=== PATIENT | male | born 1965 | race Caucasian/White ===

== ENCOUNTER → 2020-01-21 | Outpatient (CLI) | payer OTHER ==
[~2020-01-21] MED LIST: AMLO1TAB25 PO; ASPI81TA45 PO; TYLE325T5 PO; VALSARTAN PO; VITA100018 PO
--- NOTE | 2020-02-20 10:51 | REP ---
ZENOBIAIE SWALLOW The procedure was performed under the direct supervision of Dr. Warner. The procedure was performed with Yakelin Anton from speech pathology present. 5 mL aliquots of thin, pudding, mixed fruit, soft, and solid consistency barium was administered. There was no evidence of penetration or aspiration. A detailed report of this examination will be provided by speech pathology. 0.6 minutes of fluoroscopy time was utilized for this procedure. FANY
== END ==
LOC: M ST 12:27
PROVIDERS: ATTEND Physician Assistant Medical
DX: R13.10 Dysphagia, unspecified (principal)

== ENCOUNTER 2020-02-26 09:45 | Outpatient (RCR) | payer OTHER | END 2020-02-27 | disposition home or self-care (01) | LOC: M ST 09:45 | PROVIDERS: ATTEND Physician Assistant Medical | DX: R13.10 Dysphagia, unspecified (principal) ==

== ENCOUNTER 2021-05-20 18:33 | Emergency (ER) | payer OTHER ==
[~2021-05-20] VITALS: Ht 180.3 cm; Wt 131.8 kg
[2021-05-20] MEDS ORDERED: ELIQ5TAB PO (18:50)
[2021-05-20] MEDS ORDERED: VALS1TAB68 PO (18:50)
--- NOTE | 2021-05-20 20:13 | REPVR ---
PROCEDURE INFORMATION: Exam: CT Abdomen And Pelvis Without Contrast Exam date and time: 05/20/2021 6:56 PM Age: 55 years old Clinical indication: Other: Right flank pain TECHNIQUE: Imaging protocol: Computed tomography of the abdomen and pelvis without contrast. Radiation optimization: All CT scans at this facility use at least one of these dose optimization techniques: automated exposure control; mA and/or kV adjustment per patient size (includes targeted exams where dose is matched to clinical indication); or iterative reconstruction. COMPARISON: No relevant prior studies available. FINDINGS: Lungs: No suspicious mass or airspace process in the visualized lung bases. Liver: Noncontrast liver shows no obvious lesion. Gallbladder and bile ducts: Gallbladder is present and shows no evidence of gallstone. Pancreas: Noncontrast pancreas shows no obvious mass or adjacent fluid. Spleen: Noncontrast spleen shows no obvious focal deformity. Adrenal glands: Adrenal glands are normal in appearance. Kidneys and ureters: Left kidney demonstrates no stone or obstructive uropathy. Right kidney demonstrates perinephric stranding, diffuse edema and mild hydronephrosis, secondary to a proximal right ureter stone measuring 5 x 3 mm at the right UPJ level. Stomach and bowel: Limited evaluation without enteric or IV contrast. No evidence of small bowel obstruction. No evidence of acute diverticulitis. Appendix: Normal-appearing retrocecal appendix is identified, without inflammation. Intraperitoneal space: No pneumoperitoneum. Vasculature: Atherosclerotic change present in the aorta, without aneurysm. Lymph nodes: No enlarged lymph nodes. Urinary bladder: Urinary bladder appears normal. Reproductive: Dystrophic prostate calcifications are noted. Bones/joints: Bony structures show no acute fracture or destructive process. Soft tissues: Fat containing umbilical hernia is present. No concerning focal abnormality of the extra-abdominal and pelvic soft tissues. IMPRESSION: Mild right hydronephrosis secondary to a 5 x 3 mm proximal right ureter stone at the UPJ level Electronically signed by: Chuckie Prajapati On 05/20/2021 20:12:49 PM
[2021-05-20 20:14] LABS: BASO % 0.3 % (0.0-1.0); EOS % 0.1 % (0.0-3.0); HEMATOCRIT 41.2 % (42.0-52.0); HEMOGLOBIN 13.8 g/dl (13.5-17.5); LYMPH % 7.2 % (24.0-44.0); MEAN CORPUSCULAR HEMOGLOBIN 30.4 pg (27.0-33.0); MEAN CORPUSCULAR HGB CONC 33.5 g/dl (32.0-36.5); MEAN CORPUSCULAR VOLUME 90.7 fl (80.0-96.0); MONO # 1.2 10^3/uL (0.0-0.8); MONO % 8.7 % (2.0-8.0); NEUTROPHILS # 11.4 10^3/uL (1.5-8.5); NEUTROPHILS % 82.9 % (36.0-66.0); PLATELET COUNT, AUTOMATED 188 10^3/uL (150-450); RED BLOOD COUNT 4.54 10^6/uL (4.30-6.10); WHITE BLOOD COUNT 13.7 10^3/uL (4.0-10.0)
[2021-05-20 20:40] LABS: CALCIUM LEVEL 8.6 MG/DL (8.5-10.1); CREATININE FOR GFR 1.48 MG/DL (0.70-1.30); GLOMERULAR FILTRATION RATE 52.2 (>56); POTASSIUM SERUM 3.4 MEQ/L (3.5-5.1)
[2021-05-20] MEDS: NS 1,000 ML IV ONE (23:55)
[2021-05-21 00:13] LABS: BILIRUBIN,DIRECT 0.2 MG/DL (0.0-0.2); BILIRUBIN,TOTAL 0.5 MG/DL (0.2-1.0); TOTAL PROTEIN 7.2 GM/DL (6.4-8.2)
--- NOTE | 2021-05-21 00:34 | REPVR ---
PROCEDURE INFORMATION: Exam: US Scrotum Exam date and time: 05/20/2021 12:17 AM Age: 55 years old Clinical indication: Scrotum pain; Additional info: R testicular pain TECHNIQUE: Imaging protocol: Real-time ultrasound of the scrotum and contents with color Doppler and image documentation. COMPARISON: CT ABD PELVIS W/O CONTRAST 05/20/2021 6:52 PM FINDINGS: Right testicle: Right testicle measures 3.4 x 2.8 x 2.3 cm in size. Right testicle appears homogeneous with no focal mass. Normal Doppler flow is present within the right testicle. Left testicle: Left testicle measures 2.7 x 2.5 x 4.1 cm in size. Normal resistive index 0.68. Left testicle appears homogeneous with no focal mass. Normal Doppler flow is present within the left testicle. Normal resistive index 0.61 Epididymides: Right epididymis appears normal and demonstrates normal Doppler flow. Left epididymis appears normal and demonstrates normal Doppler flow. Scrotum: Large bilateral hydrocele . No bowel-containing hernia sac within the scrotum. IMPRESSION: Large bilateral scrotal hydrocele without evidence of septations or hypervascularity. No evidence of testicular torsion, epididymitis or other concerning process Electronically signed by: Chuckie Prajapati On 05/21/2021 00:33:59 AM
[2021-05-21] MEDS: KETOROLAC 30 MG/ML 1ML VIAL IV ONE (00:45)
[2021-05-21] MEDS: POTASSIUM CHLORIDE 10MEQ SR TABLET PO ONE (02:55)
[2021-05-21] MEDS ORDERED: PERC5TAB12 PO (03:27)
[2021-05-21 03:46] VITALS: BP 138/77
--- NOTE | 2021-05-22 09:17 | ED PDOC ---
Post-Departure Follow-Up radiology report faxed to john Campos Sarah MD May 22, 2021 09:17
== END 2021-05-21 03:48 | disposition home or self-care (01) ==
LOC: M ED 18:33
DX: N20.1 Calculus of ureter (principal); R73.03 Prediabetes; M54.9 Dorsalgia, unspecified; F41.9 Anxiety disorder, unspecified; N43.3 Hydrocele, unspecified; Z79.82 Long term (current) use of aspirin; Z79.899 Other long term (current) drug therapy; Z88.8 Allergy status to other drugs, medicaments and biological substances
CPT/HCPCS: 74176; 76870; 80048; 80076; 81001; 83690; 85025; 93976; 96360; 96361; 96374; 99285; J1885

== ENCOUNTER → 2021-06-01 | Outpatient (CLI) | payer OTHER ==
[~2021-06-01] MED LIST changes: +ELIQ5TAB PO; +PERC5TAB12 PO; +VALS1TAB68 PO
--- NOTE | 2021-06-01 12:01 | REP ---
INDICATION: LOCALIZED SWELLING MASS AND LUMP OF RT ARM. COMPARISON: None. TECHNIQUE: Real-time sonographic evaluation of a palpable mass in the right upper arm with Doppler FINDINGS: There is a possible echogenic poorly marginated non circumscribed lesions seen in the region of a palpable mass which measures 3.8 x 1.5 x 1.6 cm. Doppler shows no evidence of internal blood flow. IMPRESSION: Possible mass as described above. Pre and post gadolinium enhanced MRI is recommended. <Electronically signed by Margarito Flores > 06/01/21 2048
== END ==
LOC: M RAD 10:58
PROVIDERS: ATTEND Nurse Practitioner Primary Care
DX: M79.89 Other specified soft tissue disorders (principal)

== ENCOUNTER → 2021-07-08 | Outpatient (CLI) | payer OTHER ==
[2021-07-08 11:22] LABS: BLOOD UREA NITROGEN 23 MG/DL (7-18); CARBON DIOXIDE LEVEL 24 MEQ/L (21-32); CHLORIDE LEVEL 109 MEQ/L (98-107); GLOMERULAR FILTRATION RATE > 60.0 (>56); GLUCOSE, FASTING 114 MG/DL (70-100); SODIUM LEVEL 140 MEQ/L (136-145)
== END ==
LOC: M LAB 09:20
PROVIDERS: ATTEND Nurse Practitioner Primary Care
DX: R22.30 Localized swelling, mass and lump, unspecified upper limb (principal)

== ENCOUNTER → 2021-07-27 | Outpatient (CLI) | payer OTHER ==
[~2021-07-27] MED LIST changes: +OMEGA-3 1000MG CAPSULE ONE; +PROHANCE 279.3MG/ML 15ML VIAL ONE; +PROHANCE 279.3MG/ML 5ML VIAL ONE
== END ==
LOC: M PLAIMG 09:53
PROVIDERS: ATTEND Nurse Practitioner Primary Care
DX: R22.30 Localized swelling, mass and lump, unspecified upper limb (principal)
CPT/HCPCS: 73220; A9576

== ENCOUNTER → 2022-01-15 | Outpatient (REF) ==
[~2022-01-15] MED LIST changes: -OMEGA-3 1000MG CAPSULE ONE; -PROHANCE 279.3MG/ML 15ML VIAL ONE; -PROHANCE 279.3MG/ML 5ML VIAL ONE
== END ==
LOC: M RAD 09:56
PROVIDERS: ATTEND Nurse Practitioner Family
DX: M25.511 Pain in right shoulder (principal)

== ENCOUNTER 2022-09-28 18:51 | Observation (INO) | payer OTHER ==
[~2022-09-28] VITALS: Ht 180.3 cm; Wt 133.4 kg
[2022-09-28 21:00] VITALS: BP 165/94
[2022-09-28] MEDS ORDERED: TAMSULOSIN 0.4 MG CAP PO SCH (21:00)
[2022-09-28] MEDS ORDERED: HYDROMORPHONE HCL 0.5 MG/ 0.5 ML SYRINGE IV PRN (22:35)
[2022-09-28] MEDS ORDERED: ONDANSETRON 4MG 2ML VIAL IV PRN (22:35)
[2022-09-28] MEDS: NS 1,000 ML IV SCH (23:20)
[2022-09-28] MEDS ORDERED: ASPI-161 PO (23:23)
[2022-09-28] MEDS ORDERED: ATEN25TA PO (23:23)
[2022-09-28] MEDS ORDERED: SERT50TA29 PO (23:23)
[2022-09-28] MEDS ORDERED: POTA-150 PO (23:23)
[2022-09-28] MEDS ORDERED: FLOM0.4C39 PO (23:23)
[2022-09-28] MEDS ORDERED: CHLO125TA PO (23:23)
[2022-09-28] MEDS ORDERED: XARE20TA PO (23:23)
[2022-09-28] MEDS ORDERED: DICL1GEL3 TOP (23:23)
[2022-09-28] MEDS ORDERED: ATOR40TA75 PO (23:23)
[2022-09-28] MEDS ORDERED: VALS1TAB68 PO (23:23)
[2022-09-28] MEDS ORDERED: FLON1SPR (23:23)
[2022-09-28] MEDS ORDERED: FAMO40TA3 PO (23:23)
[2022-09-28] MEDS ORDERED: FLUC150T9 PO (23:23)
[2022-09-28] MEDS ORDERED: XALA0.007 OU (23:23)
[2022-09-28] MEDS ORDERED: ARTIDRO4 OU (23:23)
[2022-09-28] MEDS ORDERED: AMLO1TAB24 PO (23:23)
[2022-09-28] MEDS ORDERED: HOME MED LIST COMPLETE! XX SCH (23:25)
[2022-09-29 00:14] VITALS: BP 120/56
[2022-09-29 04:56] VITALS: BP 141/63
[2022-09-29 07:26] LABS: BASO % 0.7 % (0.0-1.0); EOS # 0.1 10^3/uL (0.0-0.5); EOS % 2.2 % (0.0-3.0); HEMATOCRIT 37.8 % (42.0-52.0); HEMOGLOBIN 12.7 g/dl (13.5-17.5); LYMPH # 1.4 10^3/uL (1.5-5.0); LYMPH % 23.6 % (24.0-44.0); MEAN CORPUSCULAR HEMOGLOBIN 30.7 pg (27.0-33.0); MEAN CORPUSCULAR HGB CONC 33.6 g/dl (32.0-36.5); MEAN CORPUSCULAR VOLUME 91.3 fl (80.0-96.0); MONO # 0.5 10^3/uL (0.0-0.8); NEUTROPHILS # 3.8 10^3/uL (1.5-8.5); PLATELET COUNT, AUTOMATED 161 10^3/uL (150-450); RED BLOOD COUNT 4.14 10^6/uL (4.30-6.10); WHITE BLOOD COUNT 5.9 10^3/uL (4.0-10.0)
[2022-09-29 07:58] LABS: BLOOD UREA NITROGEN 17 MG/DL (9-23); CARBON DIOXIDE LEVEL 28 MMOL/L (20-31); CHLORIDE LEVEL 107 MMOL/L (98-107); CREATININE FOR GFR 1.01 MG/DL (0.70-1.30); GLOMERULAR FILTRATION RATE > 60.0 (>56); GLUCOSE, FASTING 130 MG/DL (60-100); MAGNESIUM LEVEL 1.9 MG/DL (1.8-2.4); POTASSIUM SERUM 3.3 MMOL/L (3.5-5.1); SODIUM LEVEL 141 MMOL/L (136-145)
[2022-09-29 08:00] VITALS: BP 130/80
[2022-09-29] MEDS ORDERED: POTASSIUM CHLORIDE 10MEQ SR TABLET PO ONE (08:10)
[2022-09-29] MEDS ORDERED: FAMOTIDINE 20 MG TAB PO PRN (08:40)
[2022-09-29] MEDS ORDERED: POLYVINYL ALCOHOL OPHTH SOLN 15ML (LIQUITEARS) OU PRN (08:40)
[2022-09-29] MEDS ORDERED: FLUTICASONE PROP 0.05% NASAL SPRAY 16 GM (FLONASE) PRN (08:40)
[2022-09-29] MEDS: NS 1,000 ML IV SCH (08:47)
[2022-09-29] MEDS ORDERED: VALSARTAN 80 MG TAB (DIOVAN) PO SCH (09:00)
[2022-09-29] MEDS ORDERED: CYANOCOBALAMIN 500 MCG TAB PO SCH (09:00)
[2022-09-29] MEDS ORDERED: SERTRALINE HCL 50 MG TAB PO SCH (09:00)
[2022-09-29] MEDS ORDERED: ATENOLOL 12.5MG PER 1/2 TABLET PO SCH (09:00)
[2022-09-29] MEDS ORDERED: amLODIPine 5 MG TAB PO SCH (09:00)
[2022-09-29 09:45] VITALS: BP 130/80
[2022-09-29 12:00] LABS: HEMATOCRIT 39.7 % (42.0-52.0); HEMOGLOBIN 13.1 g/dl (13.5-17.5)
[2022-09-29 12:12] VITALS: BP 122/74
[2022-09-29 15:24] VITALS: BP 120/69
[2022-09-29] MEDS ORDERED: XARE20TA PO (16:30)
[2022-09-29 16:45] LABS: HEMATOCRIT 38.6 % (42.0-52.0)
[2022-09-29] MEDS ORDERED: ATORVASTATIN 20 MG TAB PO SCH (21:00)
[2022-09-29] MEDS ORDERED: LATANOPROST 0.005% OPHTH SOLN 2.5 ML OU SCH (21:00)
== END 2022-09-29 17:45 | disposition home or self-care (01) ==
LOC: INTOOBSV 20:38 → M PCU 20:38
PROVIDERS: ADMIT Internal Medicine; ATTEND Internal Medicine
DX: R31.0 Gross hematuria (principal); N20.1 Calculus of ureter; I48.91 Unspecified atrial fibrillation; I10 Essential (primary) hypertension; E78.5 Hyperlipidemia, unspecified; K21.9 Gastro-esophageal reflux disease without esophagitis; Z88.8 Allergy status to other drugs, medicaments and biological substances; Z91.030 Bee allergy status; Z79.899 Other long term (current) drug therapy; Z79.82 Long term (current) use of aspirin; Z79.01 Long term (current) use of anticoagulants; Z87.891 Personal history of nicotine dependence
CPT/HCPCS: 36415; 76775; 80048; 83735; 85014; 85018; 85025; G0378

== ENCOUNTER 2022-09-29 19:52 | Observation (INO) | payer OTHER ==
[~2022-09-29] VITALS: Ht 180.3 cm; Wt 130.8 kg
[~2022-09-29 19:52] MED LIST changes: +AMLO1TAB24 PO; +ARTIDRO4 OU; +ASPI-161 PO; +ATEN25TA PO; +ATOR40TA75 PO; +CHLO125TA PO; +DICL1GEL3 TOP; +FAMO40TA3 PO; +FLOM0.4C39 PO; +FLON1SPR; +FLUC150T9 PO; +POTA-150 PO; +SERT50TA29 PO; +XALA0.007 OU; +XARE20TA PO
[2022-09-29 21:05] LABS: BASO % 0.6 % (0.0-1.0); EOS # 0.2 10^3/uL (0.0-0.5); EOS % 2.4 % (0.0-3.0); HEMATOCRIT 38.9 % (42.0-52.0); HEMOGLOBIN 13.2 g/dl (13.5-17.5); LYMPH # 1.8 10^3/uL (1.5-5.0); LYMPH % 26.3 % (24.0-44.0); MEAN CORPUSCULAR HEMOGLOBIN 31.3 pg (27.0-33.0); MEAN CORPUSCULAR HGB CONC 33.9 g/dl (32.0-36.5); MEAN CORPUSCULAR VOLUME 92.2 fl (80.0-96.0); MONO # 0.5 10^3/uL (0.0-0.8); MONO % 7.3 % (2.0-8.0); NEUTROPHILS # 4.3 10^3/uL (1.5-8.5); NEUTROPHILS % 63.1 % (36.0-66.0); PLATELET COUNT, AUTOMATED 173 10^3/uL (150-450); RED BLOOD COUNT 4.22 10^6/uL (4.30-6.10); WHITE BLOOD COUNT 6.7 10^3/uL (4.0-10.0)
[2022-09-29] MEDS ORDERED: TAMSULOSIN 0.4 MG CAP PO ONE (21:10)
[2022-09-29 21:22] LABS: INR 0.9; PROTHROMBIN TIME 12.3 SECONDS (12.5-14.5)
[2022-09-29 21:23] LABS: PARTIAL THROMBOPLASTIN TIME 26.5 SECONDS (24.8-34.2)
[2022-09-29 21:27] LABS: BLOOD UREA NITROGEN 18 MG/DL (9-23); CALCIUM LEVEL 8.4 MG/DL (8.5-10.1); CARBON DIOXIDE LEVEL 29 MMOL/L (20-31); CHLORIDE LEVEL 108 MMOL/L (98-107); CREATININE FOR GFR 1.08 MG/DL (0.70-1.30); GLOMERULAR FILTRATION RATE > 60.0 (>56); GLUCOSE, FASTING 140 MG/DL (60-100); POTASSIUM SERUM 3.3 MMOL/L (3.5-5.1); SODIUM LEVEL 143 MMOL/L (136-145)
[2022-09-29 21:39] LABS: RSV AMPLIFICATION NEGATIVE (NEGATIVE)
[2022-09-29] MEDS ORDERED: KETOROLAC 30 MG/ML 1ML VIAL IV ONE (22:00)
[2022-09-29] MEDS ORDERED: HOME MED LIST COMPLETE! XX SCH (22:25)
[2022-09-29] MEDS ORDERED: HYDROMORPHONE HCL 0.5 MG/ 0.5 ML SYRINGE IV PRN (23:00)
[2022-09-29] MEDS ORDERED: ATENOLOL 12.5MG PER 1/2 TABLET PO PRN (23:00)
[2022-09-29] MEDS ORDERED: FAMOTIDINE 20 MG TAB PO PRN (23:00)
[2022-09-30] VITALS (9 sets, daily range): BP systolic 132–159; BP diastolic 71–98
[2022-09-30] MEDS: NS 1,000 ML IV SCH ×3 (01:07→19:41)
[2022-09-30] MEDS: LATANOPROST 0.005% OPHTH SOLN 2.5 ML OU SCH ×2 (01:07→19:42)
[2022-09-30] MEDS: ACETAMINOPHEN TAB 650MG DOSE (2X325MG) PO PRN (01:08)
[2022-09-30 06:48] LABS: BLOOD UREA NITROGEN 22 MG/DL (9-23); CALCIUM LEVEL 8.5 MG/DL (8.5-10.1); CARBON DIOXIDE LEVEL 26 MMOL/L (20-31); CHLORIDE LEVEL 110 MMOL/L (98-107); CREATININE FOR GFR 1.09 MG/DL (0.70-1.30); GLOMERULAR FILTRATION RATE > 60.0 (>56); GLUCOSE, FASTING 123 MG/DL (60-100); POTASSIUM SERUM 3.4 MMOL/L (3.5-5.1); SODIUM LEVEL 141 MMOL/L (136-145)
[2022-09-30] MEDS ORDERED: ceFAZolin SOD 3 GM in IV 1 EA IV ONE (12:00)
[2022-09-30] MEDS ORDERED: ISOVUE-300 61% 100ML VIAL As Ordered ONE (12:03)
[2022-09-30] MEDS ORDERED: ceFAZolin SOD 2 GM in IV 1 EA IV ONE (12:05)
[2022-09-30] MEDS ORDERED: ceFAZolin SOD 1 GM in D5W MINI-BAG PLUS 50 ML IV ONE (12:05)
[2022-09-30] MEDS ORDERED: ceFAZolin 1GM VIAL As Ordered ONE (12:10)
[2022-09-30] MEDS ORDERED: GLYCOPYRROLATE INJ 0.2 MG/ML 2 ML VIAL As Ordered ONE (12:41)
[2022-09-30] MEDS ORDERED: fentaNYL 100 MCG/2 ML INJECTION As Ordered ONE (12:48)
[2022-09-30] MEDS ORDERED: MIDAZOLAM INJ 2MG/2ML VIAL As Ordered ONE (12:48)
[2022-09-30] MEDS ORDERED: propofoL 200 MG/20 ML VIAL As Ordered ONE (12:48)
[2022-09-30] MEDS ORDERED: ONDANSETRON 4MG 2ML VIAL As Ordered ONE (12:48)
[2022-09-30] MEDS ORDERED: LIDOCAINE 2% 100MG/5ML SDV (FOR ANES.) As Ordered ONE (12:48)
[2022-09-30] MEDS: SERTRALINE HCL 50 MG TAB PO SCH (13:50)
[2022-09-30] MEDS: TAMSULOSIN 0.4 MG CAP PO SCH (13:50)
[2022-09-30] MEDS: amLODIPine 5 MG TAB PO SCH (13:51)
[2022-09-30] MEDS: CHLORTHALIDONE 25 MG TAB PO SCH (16:22)
[2022-09-30] MEDS ORDERED: ATORVASTATIN 20 MG TAB PO SCH (21:00)
[2022-10-01] MEDS: NS 1,000 ML IV SCH (05:17)
[2022-10-01 05:55] LABS: BASO % 0.2 % (0.0-1.0); EOS % 0.2 % (0.0-3.0); HEMATOCRIT 33.8 % (42.0-52.0); HEMOGLOBIN 11.5 g/dl (13.5-17.5); LYMPH % 10.8 % (24.0-44.0); MEAN CORPUSCULAR HEMOGLOBIN 30.7 pg (27.0-33.0); MEAN CORPUSCULAR VOLUME 90.4 fl (80.0-96.0); MONO # 0.8 10^3/uL (0.0-0.8); MONO % 8.2 % (2.0-8.0); NEUTROPHILS # 7.5 10^3/uL (1.5-8.5); NEUTROPHILS % 80.3 % (36.0-66.0); PLATELET COUNT, AUTOMATED 166 10^3/uL (150-450); RED BLOOD COUNT 3.74 10^6/uL (4.30-6.10); WHITE BLOOD COUNT 9.4 10^3/uL (4.0-10.0)
[2022-10-01 06:00] VITALS: BP 148/97
[2022-10-01 06:26] LABS: BLOOD UREA NITROGEN 16 MG/DL (9-23); CARBON DIOXIDE LEVEL 26 MMOL/L (20-31); CHLORIDE LEVEL 108 MMOL/L (98-107); CREATININE FOR GFR 1.02 MG/DL (0.70-1.30); GLOMERULAR FILTRATION RATE > 60.0 (>56); GLUCOSE, FASTING 136 MG/DL (60-100); MAGNESIUM LEVEL 1.7 MG/DL (1.8-2.4); POTASSIUM SERUM 3.3 MMOL/L (3.5-5.1); SODIUM LEVEL 141 MMOL/L (136-145)
[2022-10-01] MEDS ORDERED: POTASSIUM CHLORIDE 10MEQ SR TABLET PO ONE (07:25)
[2022-10-01] MEDS: CHLORTHALIDONE 25 MG TAB PO SCH (08:46)
[2022-10-01] MEDS: TAMSULOSIN 0.4 MG CAP PO SCH (08:46)
[2022-10-01] MEDS: SERTRALINE HCL 50 MG TAB PO SCH (08:46)
[2022-10-01 08:47] VITALS: BP 148/98
[2022-10-01] MEDS: amLODIPine 5 MG TAB PO SCH (08:47)
[2022-10-01] MEDS: ACETAMINOPHEN TAB 650MG DOSE (2X325MG) PO PRN (08:57)
[2022-10-01 10:00] VITALS: BP 139/78
[2022-10-01] MEDS ORDERED: XARE20TA PO (10:53)
[2022-10-01] MEDS ORDERED: MAGNESIUM OXIDE 400MG TAB (MAG-OX) PO ONE (11:00)
[2022-10-01 14:00] VITALS: BP 140/79
== END 2022-10-01 18:04 | disposition home or self-care (01) ==
LOC: M ED 19:52 → M ED INP 19:53 → ENRESERV 23:47 → M MSPAV 09-30 00:30
PROVIDERS: ADMIT Internal Medicine; ATTEND Internal Medicine
DX: N20.1 Calculus of ureter (principal); R31.0 Gross hematuria; I48.91 Unspecified atrial fibrillation; K80.10 Calculus of gallbladder with chronic cholecystitis without obstruction; R91.8 Other nonspecific abnormal finding of lung field; D35.02 Benign neoplasm of left adrenal gland; I10 Essential (primary) hypertension; K21.9 Gastro-esophageal reflux disease without esophagitis; E78.5 Hyperlipidemia, unspecified; F32.A Depression, unspecified; F41.9 Anxiety disorder, unspecified; Z88.8 Allergy status to other drugs, medicaments and biological substances; Z91.030 Bee allergy status; Z79.899 Other long term (current) drug therapy; Z79.01 Long term (current) use of anticoagulants; Z79.82 Long term (current) use of aspirin; Z87.891 Personal history of nicotine dependence
CPT/HCPCS: 36415; 52356; 71045; 74176; 74420; 80048; 82365; 83735; 85025; 85610; 85730; 87086; 87631; 93005; 96360; 96361; 96374; 99284; C1769; C1894; C2617; G0378; J0690; J1100; J1885; J2250; J2405; J3010; Q9967

== ENCOUNTER → 2022-11-08 | Outpatient (REF) | LOC: M PLAIMG 08:46 | PROVIDERS: ATTEND Internal Medicine | DX: M25.561 Pain in right knee (principal); M25.562 Pain in left knee ==

== ENCOUNTER 2023-01-04 07:20 | Emergency (ER) | payer OTHER ==
[~2023-01-04] VITALS: Ht 180.3 cm; Wt 131.0 kg
[2023-01-04 07:22] VITALS: BP 125/80; TEMP 98
[2023-01-04] MEDS ORDERED: PERCOCET 5MG/325MG TAB PO ONE (10:10)
[2023-01-04] MEDS ORDERED: PERC5TAB12 PO (10:13)
[2023-01-04 10:20] VITALS: O2SAT 98
== END 2023-01-04 10:25 | disposition home or self-care (01) ==
LOC: M ED 07:20
DX: S52.602A Unspecified fracture of lower end of left ulna, initial encounter for closed fracture (principal); V49.40XA Driver injured in collision with unspecified motor vehicles in traffic accident, initial encounter; Y92.410 Unspecified street and highway as the place of occurrence of the external cause; I10 Essential (primary) hypertension; E11.9 Type 2 diabetes mellitus without complications; H40.9 Unspecified glaucoma; N40.0 Benign prostatic hyperplasia without lower urinary tract symptoms; M54.9 Dorsalgia, unspecified; Z79.899 Other long term (current) drug therapy; Z91.030 Bee allergy status; Z88.8 Allergy status to other drugs, medicaments and biological substances; Z79.82 Long term (current) use of aspirin

== ENCOUNTER → 2023-01-04 | Outpatient (CLI) | payer OTHER ==
[~2023-01-04] MED LIST changes: +DICL100G10 TOP; -DICL1GEL3 TOP
[2023-01-04 11:46] LABS: BLOOD UREA NITROGEN 32 MG/DL (9-23); CARBON DIOXIDE LEVEL 29 MMOL/L (20-31); CHLORIDE LEVEL 104 MMOL/L (98-107); CREATININE FOR GFR 1.22 MG/DL (0.70-1.30); GLOMERULAR FILTRATION RATE > 60.0 (>56); GLUCOSE, FASTING 161 MG/DL (60-100); POTASSIUM SERUM 3.4 MMOL/L (3.5-5.1); SODIUM LEVEL 142 MMOL/L (136-145)
== END ==
LOC: M LAB 10:52
PROVIDERS: ATTEND Internal Medicine Cardiovascular Disease
DX: I48.19 Other persistent atrial fibrillation (principal)

== ENCOUNTER 2023-01-11 20:30 | Observation (INO) | payer OTHER ==
[~2023-01-11] VITALS: Ht 180.3 cm; Wt 130.3 kg
[2023-01-11 20:01] VITALS: BP 148/87; TEMP 97.7; O2SAT 96
[~2023-01-11 20:30] MED LIST changes: +ACETAMINOPHEN TAB 650MG DOSE (2X325MG) PO PRN; -FLON1SPR; +FLON1SPR NARES
[2023-01-11 21:33] LABS: HEMATOCRIT 40.1 % (42.0-52.0); HEMOGLOBIN 13.4 g/dl (13.5-17.5); MEAN CORPUSCULAR HEMOGLOBIN 29.8 pg (27.0-33.0); MEAN CORPUSCULAR HGB CONC 33.4 g/dl (32.0-36.5); MEAN CORPUSCULAR VOLUME 89.1 fl (80.0-96.0); PLATELET COUNT, AUTOMATED 190 10^3/uL (150-450); WHITE BLOOD COUNT 8.9 10^3/uL (4.0-10.0)
[2023-01-11 21:54] LABS: INR 0.96; PROTHROMBIN TIME 12.5 SECONDS (12.5-14.5)
[2023-01-11 22:02] LABS: BLOOD UREA NITROGEN 35 MG/DL (9-23); CALCIUM LEVEL 9.2 MG/DL (8.5-10.1); CARBON DIOXIDE LEVEL 32 MMOL/L (20-31); CHLORIDE LEVEL 104 MMOL/L (98-107); CREATININE FOR GFR 1.24 MG/DL (0.70-1.30); GLOMERULAR FILTRATION RATE > 60.0 (>56); GLUCOSE, FASTING 124 MG/DL (60-100); POTASSIUM SERUM 3.3 MMOL/L (3.5-5.1); SODIUM LEVEL 144 MMOL/L (136-145)
[2023-01-11] MEDS ORDERED: POTASSIUM CHLORIDE 10MEQ SR TABLET PO ONE (22:05)
[2023-01-11] MEDS ORDERED: AZEL1SPR3 NARES (22:47)
[2023-01-11] MEDS ORDERED: OXYC1TAB23 PO (22:47)
[2023-01-11] MEDS ORDERED: XARE20TA PO (22:47)
[2023-01-11] MEDS ORDERED: HOME MED LIST COMPLETE! XX SCH (22:50)
[2023-01-11] MEDS ORDERED: FAMOTIDINE 20 MG TAB PO PRN (22:55)
[2023-01-11] MEDS ORDERED: ATENOLOL 12.5MG PER 1/2 TABLET PO PRN (22:55)
[2023-01-11] MEDS ORDERED: PERCOCET 5MG/325MG TAB PO PRN (22:55)
[2023-01-11] MEDS: LATANOPROST 0.005% OPHTH SOLN 2.5 ML OU SCH (23:23)
[2023-01-12 06:22] VITALS: BP 104/71; TEMP 96.8; O2SAT 97
[2023-01-12] MEDS ORDERED: SERTRALINE HCL 50 MG TAB PO SCH (09:00)
[2023-01-12] MEDS ORDERED: amLODIPine 5 MG TAB PO SCH (09:00)
[2023-01-12] MEDS ORDERED: VALSARTAN 80 MG TAB (DIOVAN) PO SCH (09:00)
[2023-01-12] MEDS ORDERED: POTASSIUM CHLORIDE 10MEQ SR TABLET PO SCH (09:00)
[2023-01-12] MEDS ORDERED: TAMSULOSIN 0.4 MG CAP PO SCH (09:00)
[2023-01-12] MEDS ORDERED: CHLORTHALIDONE 25 MG TAB PO SCH (09:00)
[2023-01-12 10:16] VITALS: BP 114/75
[2023-01-12] MEDS ORDERED: BACITRACIN OINTMENT 30GM TUBE As Ordered ONE (16:19)
[2023-01-12] MEDS ORDERED: ceFAZolin 2 GM/D5W 50 ML IV BAG As Ordered ONE (16:29)
[2023-01-12] MEDS ORDERED: ceFAZolin 1GM VIAL As Ordered ONE (17:05)
[2023-01-12] MEDS ORDERED: propofoL 200 MG/20 ML VIAL As Ordered ONE (17:19)
[2023-01-12] MEDS ORDERED: fentaNYL 100 MCG/2 ML INJECTION As Ordered ONE (17:19)
[2023-01-12] MEDS ORDERED: ONDANSETRON 4MG 2ML VIAL As Ordered ONE (17:19)
[2023-01-12] MEDS ORDERED: HYDROmorphone HCL 2MG/ML 1ML VIAL As Ordered ONE (17:19)
[2023-01-12] MEDS ORDERED: ACETAMINOPHEN 1000MG 100ML IV BAG As Ordered ONE (17:19)
[2023-01-12] MEDS ORDERED: LIDOCAINE 2% 100MG/5ML SDV (FOR ANES.) As Ordered ONE (17:19)
[2023-01-12] MEDS ORDERED: METOCLOPRAMIDE INJ 10MG/2ML VIAL As Ordered ONE (17:19)
[2023-01-12] MEDS ORDERED: MIDAZOLAM INJ 2MG/2ML VIAL As Ordered ONE (17:19)
[2023-01-12] MEDS ORDERED: KETOROLAC 60MG 2ML VIAL As Ordered ONE (17:35)
[2023-01-12] MEDS ORDERED: PERC5TAB12 PO (18:17)
[2023-01-12] MEDS ORDERED: MEPERIDINE 25 MG/ML 1ML VIAL IV PRN (18:20)
[2023-01-12] MEDS ORDERED: fentaNYL 100 MCG/2 ML INJECTION IV PRN (18:20)
[2023-01-12] MEDS ORDERED: diphenhydrAMINE 50MG/ML VIAL IV PRN (18:20)
[2023-01-12] MEDS ORDERED: METOCLOPRAMIDE INJ 10MG/2ML VIAL IV PRN (18:20)
[2023-01-12] MEDS ORDERED: LR 1,000 ML IV SCH (18:20)
[2023-01-12] MEDS ORDERED: oxyCODONE 5MG TAB PO PRN (18:20)
[2023-01-12] MEDS ORDERED: ONDANSETRON 4MG 2ML VIAL IV PRN (18:20)
[2023-01-12 19:30] VITALS: BP 130/88; TEMP 97.7; O2SAT 94
[2023-01-12 20:15] VITALS: BP 132/85; TEMP 97.7; O2SAT 94
[2023-01-12 21:00] VITALS: BP 141/89; TEMP 97.3; O2SAT 94
[2023-01-12] MEDS ORDERED: ATORVASTATIN 20 MG TAB PO SCH (21:00)
[2023-01-12 21:01] VITALS: O2SAT 96
[2023-01-12] MEDS: LATANOPROST 0.005% OPHTH SOLN 2.5 ML OU SCH (21:04)
== END 2023-01-12 21:09 | disposition home or self-care (01) ==
LOC: M SDC 20:30 → M MSPAV 20:53
PROVIDERS: ADMIT Family Medicine; ATTEND Internal Medicine Nephrology
DX: S52.222A Displaced transverse fracture of shaft of left ulna, initial encounter for closed fracture (principal); V89.9XXA Person injured in unspecified vehicle accident, initial encounter; Y92.410 Unspecified street and highway as the place of occurrence of the external cause; I10 Essential (primary) hypertension; E78.5 Hyperlipidemia, unspecified; I48.91 Unspecified atrial fibrillation; G47.30 Sleep apnea, unspecified; E11.9 Type 2 diabetes mellitus without complications; K21.9 Gastro-esophageal reflux disease without esophagitis; F32.A Depression, unspecified; F41.9 Anxiety disorder, unspecified; E66.9 Obesity, unspecified; Z87.442 Personal history of urinary calculi; N40.0 Benign prostatic hyperplasia without lower urinary tract symptoms; Z87.891 Personal history of nicotine dependence; Z79.899 Other long term (current) drug therapy; Z79.01 Long term (current) use of anticoagulants; Z88.8 Allergy status to other drugs, medicaments and biological substances; Z91.030 Bee allergy status
CPT/HCPCS: 25545; 36415; 71045; 76000; 80048; 85027; 85610; 87635; C1713; J0131; J0665; J0690; J1100; J1170; J1885; J2250; J2405; J2765; J3010

== ENCOUNTER → 2023-01-21 | Outpatient (CLI) | payer OTHER ==
[~2023-01-21] MED LIST changes: -ACETAMINOPHEN TAB 650MG DOSE (2X325MG) PO PRN; +AZEL1SPR3 NARES; +OXYC1TAB23 PO
== END ==
LOC: M SOG 08:57
PROVIDERS: ATTEND Physician Assistant
DX: S52.202S Unspecified fracture of shaft of left ulna, sequela (principal)

== ENCOUNTER → 2023-03-10 | Outpatient (CLI) | payer OTHER | LOC: M LAB 10:10 | PROVIDERS: ATTEND Internal Medicine | DX: I48.91 Unspecified atrial fibrillation (principal) ==

== ENCOUNTER → 2023-03-23 | Outpatient (CLI) | payer OTHER ==
[2023-03-23 13:22] LABS: BLOOD UREA NITROGEN 36 MG/DL (9-23); CALCIUM LEVEL 8.8 MG/DL (8.5-10.1); CARBON DIOXIDE LEVEL 30 MMOL/L (20-31); CHLORIDE LEVEL 105 MMOL/L (98-107); CREATININE FOR GFR 1.09 MG/DL (0.70-1.30); GLOMERULAR FILTRATION RATE > 60.0 (>56); GLUCOSE, FASTING 113 MG/DL (60-100); POTASSIUM SERUM 3.9 MMOL/L (3.5-5.1); SODIUM LEVEL 143 MMOL/L (136-145)
== END ==
LOC: M LAB 11:55
PROVIDERS: ATTEND Physician Assistant
DX: I11.9 Hypertensive heart disease without heart failure (principal)

== ENCOUNTER → 2023-03-24 | Outpatient (CLI) | payer OTHER | LOC: M SOG 07:57 | PROVIDERS: ATTEND Physician Assistant | DX: S52.202S Unspecified fracture of shaft of left ulna, sequela (principal) ==

== ENCOUNTER → 2023-04-12 | Outpatient (CLI) | payer OTHER | LOC: M PLAIMG 13:45 | PROVIDERS: ATTEND Urology | DX: N20.0 Calculus of kidney (principal) ==

== ENCOUNTER 2023-04-14 09:55 | Day surgery (SDC) | payer OTHER ==
[~2023-04-14] VITALS: Ht 180.3 cm; Wt 132.9 kg
[2023-04-14] MEDS ORDERED: propofoL 200 MG/20 ML VIAL As Ordered ONE (11:40)
[2023-04-14] MEDS ORDERED: fentaNYL 100 MCG/2 ML INJECTION As Ordered ONE (11:40)
[2023-04-14] MEDS ORDERED: MIDAZOLAM INJ 2MG/2ML VIAL As Ordered ONE (11:40)
[2023-04-14] MEDS ORDERED: LIDOCAINE 2% 100MG/5ML SDV (FOR ANES.) As Ordered ONE (11:40)
[2023-04-14 13:05] VITALS: BP 135/82; TEMP 97.4; O2SAT 97
== END 2023-04-14 13:13 | disposition home or self-care (01) ==
LOC: M SDC 09:55
PROVIDERS: ATTEND Internal Medicine Cardiovascular Disease
DX: I48.0 Paroxysmal atrial fibrillation (principal); I48.92 Unspecified atrial flutter; I11.9 Hypertensive heart disease without heart failure; Z79.01 Long term (current) use of anticoagulants; Z79.899 Other long term (current) drug therapy; Z79.82 Long term (current) use of aspirin; G47.33 Obstructive sleep apnea (adult) (pediatric); E66.9 Obesity, unspecified; E78.00 Pure hypercholesterolemia, unspecified; Z87.891 Personal history of nicotine dependence
CPT/HCPCS: 92960; 93005; J2250; J3010

== ENCOUNTER → 2023-10-26 | Outpatient (CLI) | payer OTHER ==
[~2023-10-26] MED LIST changes: -ASPI-161 PO; +ASPI-615 PO
[2023-10-26 14:47] LABS: HEMATOCRIT 41.5 % (42.0-52.0); HEMOGLOBIN 13.7 g/dl (13.5-17.5); MEAN CORPUSCULAR HEMOGLOBIN 30.2 pg (27.0-33.0); MEAN CORPUSCULAR VOLUME 91.6 fl (80.0-96.0); PLATELET COUNT, AUTOMATED 175 10^3/uL (150-450); RED BLOOD COUNT 4.53 10^6/uL (4.30-6.10); WHITE BLOOD COUNT 7.9 10^3/uL (4.0-10.0)
[2023-10-26 15:18] LABS: ALBUMIN 3.7 G/DL (3.2-5.2); ALKALINE PHOSPHATASE 65 U/L (46-116); ALT/SGPT 25 U/L (7.0-40); AST/SGOT 10 U/L (<34); BILIRUBIN,TOTAL 0.5 MG/DL (0.3-1.2); BLOOD UREA NITROGEN 29 MG/DL (9-23); CALCIUM LEVEL 8.7 MG/DL (8.3-10.6); CARBON DIOXIDE LEVEL 28 MMOL/L (20-31); CHLORIDE LEVEL 105 MMOL/L (98-107); CHOLESTEROL LEVEL 172 MG/DL (<200); CHOLESTEROL RISK RATIO 3.79 (<5); CREATININE FOR GFR 1.27 MG/DL (0.70-1.30); GLOMERULAR FILTRATION RATE > 60.0 (>49); GLUCOSE, FASTING 92 MG/DL (74-106); HDL CHOLESTEROL 45.3 MG/DL (>40); LDL CHOLESTEROL 110.9 MG/DL (<100); MAGNESIUM LEVEL 1.9 MG/DL (1.8-2.4); NON-HDL-C 126.7 MG/DL; POTASSIUM SERUM 4.3 MMOL/L (3.5-5.1); SODIUM LEVEL 138 MMOL/L (136-145); TOTAL PROTEIN 6.4 G/DL (5.7-8.2); TRIGLYCERIDES LEVEL 79 MG/DL (<150)
[2023-10-26 15:20] LABS: THYROID STIMULATING HORMONE 1.987 uIU/ML (0.55-4.78)
== END ==
LOC: M PLALAB 11:19
PROVIDERS: ATTEND Physician Assistant
DX: I48.3 Typical atrial flutter (principal); E78.00 Pure hypercholesterolemia, unspecified; I48.0 Paroxysmal atrial fibrillation; I11.9 Hypertensive heart disease without heart failure

== ENCOUNTER → 2023-10-28 | Outpatient (CLI) | payer OTHER | LOC: M PLAIMG 14:38 | PROVIDERS: ATTEND Physician Assistant | DX: I77.810 Thoracic aortic ectasia (principal) ==

== ENCOUNTER → 2024-04-30 | Outpatient (CLI) | payer OTHER ==
[2024-04-30 15:29] LABS: HEMATOCRIT 39.1 % (42.0-52.0); HEMOGLOBIN 13.4 g/dl (13.5-17.5); MEAN CORPUSCULAR HEMOGLOBIN 30.6 pg (27.0-33.0); MEAN CORPUSCULAR HGB CONC 34.3 g/dl (32.0-36.5); MEAN CORPUSCULAR VOLUME 89.3 fl (80.0-96.0); PLATELET COUNT, AUTOMATED 187 10^3/uL (150-450); RED BLOOD COUNT 4.38 10^6/uL (4.30-6.10); WHITE BLOOD COUNT 7.3 10^3/uL (4.0-10.0)
[2024-04-30 15:46] LABS: BLOOD UREA NITROGEN 24 MG/DL (9-23); CALCIUM LEVEL 9.5 MG/DL (8.3-10.6); CARBON DIOXIDE LEVEL 29 MMOL/L (20-31); CHLORIDE LEVEL 105 MMOL/L (98-107); CREATININE FOR GFR 1.19 MG/DL (0.70-1.30); GLOMERULAR FILTRATION RATE > 60.0 (>49); GLUCOSE, FASTING 128 MG/DL (74-106); MAGNESIUM LEVEL 1.9 MG/DL (1.8-2.4); SODIUM LEVEL 140 MMOL/L (136-145)
== END ==
LOC: M LAB 14:41
PROVIDERS: ATTEND Physician Assistant
DX: I48.3 Typical atrial flutter (principal)

== ENCOUNTER → 2024-05-29 | Outpatient (CLI) | payer OTHER | LOC: M PLAIMG 13:43 → M PLALAB 13:43 | PROVIDERS: ATTEND Urology | DX: N20.0 Calculus of kidney (principal) ==

== ENCOUNTER → 2024-09-05 | Outpatient (CLI) | payer OTHER | LOC: M WHC 09:22 | PROVIDERS: ATTEND Nurse Practitioner Family | DX: N62 Hypertrophy of breast (principal) | CPT/HCPCS: 77066; G0279 ==

== ENCOUNTER → 2024-09-07 | Outpatient (CLI) | payer OTHER ==
[2024-09-07 09:44] LABS: HEMATOCRIT 39.5 % (42.0-52.0); HEMOGLOBIN 13.2 g/dl (13.5-17.5); MEAN CORPUSCULAR HEMOGLOBIN 30.8 pg (27.0-33.0); MEAN CORPUSCULAR HGB CONC 33.4 g/dl (32.0-36.5); MEAN CORPUSCULAR VOLUME 92.1 fl (80.0-96.0); PLATELET COUNT, AUTOMATED 166 10^3/uL (150-450); RED BLOOD COUNT 4.29 10^6/uL (4.30-6.10)
[2024-09-07 10:09] LABS: ALBUMIN 3.7 G/DL (3.2-5.2); BILIRUBIN,TOTAL 0.3 MG/DL (0.3-1.2); CALCIUM LEVEL 9.3 MG/DL (8.3-10.6); CHOLESTEROL RISK RATIO 5.57 (<5); CREATININE FOR GFR 1.41 MG/DL (0.70-1.30); GLOMERULAR FILTRATION RATE 56.7 (>49); HDL CHOLESTEROL 36.8 MG/DL (>40); LDL CHOLESTEROL 144.8 MG/DL (<100); NON-HDL-C 168.2 MG/DL; POTASSIUM SERUM 4.4 MMOL/L (3.5-5.1); TOTAL PROTEIN 6.7 G/DL (5.7-8.2)
== END ==
LOC: M LAB 09:06
PROVIDERS: ATTEND Physician Assistant
DX: I48.3 Typical atrial flutter (principal); E78.00 Pure hypercholesterolemia, unspecified; I11.9 Hypertensive heart disease without heart failure; I48.0 Paroxysmal atrial fibrillation

== ENCOUNTER → 2024-10-08 | Outpatient (CLI) | payer OTHER ==
[~2024-10-08] MED LIST changes: -FLOM0.4C39 PO; +TAMS-18 PO
[2024-10-08 11:40] LABS: ALBUMIN 3.6 G/DL (3.2-5.2); BILIRUBIN,DIRECT 0.1 MG/DL (<0.4); BILIRUBIN,TOTAL 0.4 MG/DL (0.3-1.2); CALCIUM LEVEL 8.8 MG/DL (8.3-10.6); CREATININE FOR GFR 1.38 MG/DL (0.70-1.30); GLOMERULAR FILTRATION RATE 58.2 (>49); POTASSIUM SERUM 4.1 MMOL/L (3.5-5.1); TOTAL PROTEIN 6.5 G/DL (5.7-8.2)
[2024-10-08 12:45] LABS: CHOLESTEROL RISK RATIO 4.04 (<5); HDL CHOLESTEROL 34.1 MG/DL (>40); LDL CHOLESTEROL 89.9 MG/DL (<100); NON-HDL-C 103.9 MG/DL
== END ==
LOC: M LAB 10:23
PROVIDERS: ATTEND Physician Assistant
DX: I11.9 Hypertensive heart disease without heart failure (principal)

== ENCOUNTER → 2025-03-07 | Outpatient (CLI) | payer OTHER | LOC: M RAD 12:31 | PROVIDERS: ATTEND Nurse Practitioner Family | DX: N18.9 Chronic kidney disease, unspecified (principal) ==

== ENCOUNTER → 2025-03-16 | Outpatient (CLI) | payer OTHER ==
[2025-03-16 11:10] LABS: CHOLESTEROL LEVEL 180.0 MG/DL (<200); CHOLESTEROL RISK RATIO 4.45 (<5); LDL CHOLESTEROL 120.0 MG/DL (<100); NON-HDL-C 139.6 MG/DL; TRIGLYCERIDES LEVEL 98.0 MG/DL (<150)
== END ==
LOC: M LAB 09:48
PROVIDERS: ATTEND Physician Assistant
DX: E78.00 Pure hypercholesterolemia, unspecified (principal)

== ENCOUNTER → 2025-04-26 | Outpatient (CLI) | payer OTHER ==
[2025-04-26 11:10] LABS: PLATELET COUNT, AUTOMATED 195 10^3/uL (150-450)
[2025-04-26 11:38] LABS: ALT/SGPT 26.0 U/L (7.0-40); AST/SGOT 13.0 U/L (<34); CALCIUM LEVEL 8.8 MG/DL (8.3-10.6); CARBON DIOXIDE LEVEL 28.0 MMOL/L (20-31); CHLORIDE LEVEL 105.0 MMOL/L (98-107); CHOLESTEROL LEVEL 144.0 MG/DL (<200); CHOLESTEROL RISK RATIO 3.75 (<5); CREATININE FOR GFR 1.21 MG/DL (0.70-1.30); GLOMERULAR FILTRATION RATE 68.1 (>49); LDL CHOLESTEROL 91.0 MG/DL (<100); MAGNESIUM LEVEL 1.8 MG/DL (1.8-2.4); NON-HDL-C 105.6 MG/DL; POTASSIUM SERUM 4.3 MMOL/L (3.5-5.1); SODIUM LEVEL 141.0 MMOL/L (136-145); TRIGLYCERIDES LEVEL 73.0 MG/DL (<150)
== END ==
LOC: M LAB 09:52
PROVIDERS: ATTEND Physician Assistant
DX: I48.3 Typical atrial flutter (principal); E78.00 Pure hypercholesterolemia, unspecified

== ENCOUNTER 2025-05-19 18:15 | Emergency (ER) | payer OTHER ==
[~2025-05-19] VITALS: Ht 180.3 cm; Wt 129.8 kg
[2025-05-19 18:48] LABS: BASO # 0.1 10^3/uL (0.0-0.2); BASO % 0.7 % (0.0-1.0); EOS # 0.3 10^3/uL (0.0-0.5); EOS % 2.6 % (0.0-3.0); LYMPH # 1.7 10^3/uL (1.5-5.0); LYMPH % 17.3 % (24.0-44.0); MONO # 0.8 10^3/uL (0.0-0.8); MONO % 7.8 % (2.0-8.0); NEUTROPHILS # 7.0 10^3/uL (1.5-8.5); NEUTROPHILS % 70.9 % (36.0-66.0); PLATELET COUNT, AUTOMATED 212 10^3/uL (150-450)
[2025-05-19] MEDS: ASPIRIN 81 MG CHEWABLE TABLET PO ONE (19:11)
[2025-05-19 19:12] LABS: ALT/SGPT 25 U/L (7.0-40); AST/SGOT 16 U/L (<34); CALCIUM LEVEL 8.6 MG/DL (8.3-10.6); CARBON DIOXIDE LEVEL 25 MMOL/L (20-31); CHLORIDE LEVEL 104 MMOL/L (98-107); CK-MB VALUE MASS < 1.0 NG/ML (<3.6); CPK CREATINE PHOSPHOKINASE 87 U/L (46-171); CREATININE FOR GFR 1.13 MG/DL (0.70-1.30); GLOMERULAR FILTRATION RATE 74.0 (>49); POTASSIUM SERUM 3.7 MMOL/L (3.5-5.1); SODIUM LEVEL 139 MMOL/L (136-145)
[2025-05-19] MEDS ORDERED: ISOVUE-370 76% 100 ML VIAL As Ordered ONE (19:34)
[2025-05-19 20:18] LABS: CPK CREATINE PHOSPHOKINASE 84.0 U/L (46-171)
[2025-05-19 20:19] LABS: CK-MB VALUE MASS 1.0 NG/ML (<3.6); MB/CK RELATIVE INDEX 1.19 (< OR =4)
[2025-05-19 20:27] LABS: INR 1.19
[2025-05-20] MEDS ORDERED: ACETAMINOPHEN 500 MG TAB PO PRN (00:50)
[2025-05-20] MEDS ORDERED: NITROGLYCERIN 0.4 MG SUBL TABLET SL PRN (04:15)
[2025-05-20] MEDS ORDERED: MOM 30 ML SUSPENSION UDC PO PRN (05:00)
[2025-05-20] MEDS ORDERED: ENOXAPARIN 100 MG/1 ML SYRINGE (J1650 PER 10MG) SC SCH (09:00)
[2025-05-20] MEDS ORDERED: RIVAROXABAN 20MG TAB PO ONE (09:00)
[2025-05-20] MEDS: LR 1,000 ML IV SCH (09:41)
[2025-05-20] MEDS: ASPIRIN 81 MG ENTERIC TABLET PO SCH (09:41)
[2025-05-20] MEDS ORDERED: METF-838 PO (09:50)
[2025-05-20] MEDS ORDERED: ATOR80TA59 PO (09:50)
[2025-05-20] MEDS ORDERED: GENT1SOL17 OU (09:50)
[2025-05-20] MEDS ORDERED: SPIR-10 PO (09:50)
[2025-05-20] MEDS ORDERED: NYST0.1C TOP (09:50)
[2025-05-20] MEDS ORDERED: KETO120S5 TOP (09:50)
[2025-05-20] MEDS ORDERED: TAMS1CAP17 PO (09:50)
[2025-05-20] MEDS ORDERED: KETO2CR TOP (09:50)
[2025-05-20] MEDS ORDERED: HOME MED LIST COMPLETE! XX SCH (09:55)
[2025-05-20 10:07] LABS: PLATELET COUNT, AUTOMATED 194 10^3/uL (150-450)
[2025-05-20] MEDS: HEPARIN SOD 5000 UNITS/ML 1 ML VIAL/SYRINGE IV ONE (10:12)
[2025-05-20] MEDS: HEPARIN DRIP 25,000 UNITS in IV 1 EA IV SCH (10:21)
[2025-05-20 13:26] VITALS: BP 124/70; TEMP 97.3; O2SAT 98
== END 2025-05-20 13:34 | disposition short-term general hospital (02) ==
LOC: M ED 18:15
DX: I21.4 Non-ST elevation (NSTEMI) myocardial infarction (principal); E04.2 Nontoxic multinodular goiter; I48.91 Unspecified atrial fibrillation; N40.0 Benign prostatic hyperplasia without lower urinary tract symptoms; E78.5 Hyperlipidemia, unspecified; N20.0 Calculus of kidney; Z87.891 Personal history of nicotine dependence; Z79.1 Long term (current) use of non-steroidal anti-inflammatories (NSAID); Z79.84 Long term (current) use of oral hypoglycemic drugs; Z79.01 Long term (current) use of anticoagulants; Z79.899 Other long term (current) drug therapy
CPT/HCPCS: 36415; 71045; 71275; 80048; 80076; 82550; 82553; 83690; 84484; 85025; 85027; 85610; 85730; 93005; 93041; 93306; 94760; 96361; 96365; 96366; 96375; 99285; Q9967